=== PATIENT | female | born 1945 | race Caucasian/White ===

== ENCOUNTER → 2022-03-21 10:18 | Outpatient (BNVA) | payer MEDICARE, MEDICAID, SELFPAY | PROVIDERS: PCP Physician Assistant Medical; Visit Provider Hospitalist | DX: G47.34 Idiopathic sleep related nonobstructive alveolar hypoventilation (principal); G47.33 Obstructive sleep apnea (adult) (pediatric); J98.4 Other disorders of lung | CPT/HCPCS: 99202 ==

== ENCOUNTER → 2022-06-02 19:30 | Outpatient (REF) | payer MEDICARE, MEDICAID, SELFPAY | LOC: HO.SL 19:30 | PROVIDERS: PCP Physician Assistant Medical; Visit Provider Hospitalist | DX: G47.33 Obstructive sleep apnea (adult) (pediatric) (principal) | CPT/HCPCS: 95810 ==

== ENCOUNTER → 2022-06-06 15:13 | Outpatient (BNVA) | payer MEDICARE, MEDICAID, SELFPAY | PROVIDERS: PCP Physician Assistant Medical; Visit Provider Hospitalist | DX: G47.34 Idiopathic sleep related nonobstructive alveolar hypoventilation (principal); J98.4 Other disorders of lung | CPT/HCPCS: 99212 ==

== ENCOUNTER 2022-12-10 10:49 | Outpatient (AMB) | payer MEDICARE, MEDICAID, SELFPAY ==
[2022-12-10 11:12] VITALS: BP 118/60; PULSE 67; O2SAT 95; BMI 26.5
--- NOTE | 2022-12-10 11:12 | A.OFFVIS_ITS ---
Intake Vital Signs 12/10/22 11:12 Height 5 ft 7 in Weight 169 lb BMI 26.5 BP 118/60 Blood Pressure Location Rt brachial Position Sitting Pulse 67 Pulse Source Pulse Oximeter Pulse Oximetry (%) 95 Oxygen Delivery Method Room Air Intake Visit Reasons: Hypoxia Allergies No Known Allergies Allergy (Verified 12/10/22 11:15) HPI HPI Comments History of Present Illness Details The patient is a 77-year-old woman with a history of progressive shortness of breath he. She was evaluated by primary care doctor. The patient is critically anemic. She was admitted briefly to [facility] with symptomatic anemia. She did require 3 units of blood. The etiology of her anemia still not clear. Is currently being worked up. Although while she was hospitalized she was noted to be hypoxic. She required oxygen at nighttime. The patient does complaint of daytime drowsiness and headaches. Her Kyle score is elevated 03/23. The patient has not had a sleep study. Indeed the patient does have cardiovascular and cerebrovascular risk factors. Therefore she needs to have a in-lab study at this time. Will request 1. in addition to that we did a walking oximetry the patient does not qualify for oxygen with activity which is reassuring. The patient does describe coughing and sometimes she does have still shortness of breath even after the anemia was improved. On examination she does have a prolonged expiratory phase. On previous pulmonary function studies the patient did have evidence of small airways disease. Therefore, will start her on a combination inhaler to provide with further bronchodilation improvement of her symptoms. The patient also will undergo the sleep study and have a follow-up. 06/06/2022 the patient is here for pulmonary follow-up visit. Overall the patient has been feeling better. She has been using the Advair with good response. Her cough is better. She has not had to use her rescue inhaler. The patient still has been using the oxygen at nighttime. She does headaches and also daytime drowsiness. We did perform an in-lab sleep study since she is on oxygen. Her AHI was only 1.5 which is reassuring. And she actually did not require oxygen throughout the procedure. She only spent about 0.9 minutes below 88%. This is all reassuring she is very happy about that. During the sleep study as she did have significant amount of periodic limb movements. Although s he states that that was because she was uncomfortable in the laboratory. Although it could also be due to iron deficiency. She had been on iron for her anemia and apparently that was improved. Therefore will continue to monitor closely ferritin and iron levels accordingly via her primary care doctor. 12/10/2022 the patient is here for a pulm onary follow-up visit. Overall the patient is about the same. Still complaining of dyspnea on exertion even with minimal activity. She was placed on Advair. Does not know for sure how much is helping. Will provide with spacer for to better administer the medication and also for better distribution of medication to the small airways. During the visit we did go for brief walking oximetry. The patient does stop the couple times because of increased shortness of breath but only for a few seconds and then she went back walking. Her oxygenation heart rate were stable throughout the ambulation. The patient is scheduled to undergo a cardiac PET scan with her batch blender at [facility]. In addition to that we did talk about considering a cardiopulmonary exercise tolerance test. Still unclear the etiology of her dyspnea. Likely multifactorial. We did talk about the different aspects of ventilation cardiovascular system and also the metabolic system that have to work together in order to provide with deficient breathing. Her hemoglobin has been better. She is following up closely with the partner management consultant regarding her iron. The patient will undergo a cardiac PET and also will request a cardiopulmonary exercise tolerance test level 1 at [facility] to better address her ongoing symptoms. [facility] Medical History (Updated 12/10/22 @ 22:36 by Kyle Oswald MD) Dyspnea Nocturnal hypoxia JERRY (obstructive sleep apnea) Small airways disease Social History (Updated 03/21/22 @ 10:31 by JOSIAS Laws) Patient Tobacco Use Status: Former Tobacco user Tobacco use type: Cigarette Years Smoked: 3 Years Review of Systems Const Reports daytime sleepiness, Reports difficulty sleeping, Denies fever(s) and Reports headache(s) Eyes Denies change in vision ENT Denies change in voice and Reports headache(s) Card Denies chest pain and Reports dyspnea on exertion Resp Reports dyspnea on exertion and Denies wheezing GI Reports no additional complaints Musc Reports abnormal gait and Reports myalgias Skin/Breast Denies rash Neuro Reports abnormal gait and Reports headache(s) Aller/Immun Denies wheezing Physical Exam Vital Signs: Last Vital Signs Pulse 67 12/10/22 11:12 BP 118/60 09/12/23 11:12 Pulse Ox 95 12/10/22 11:12 Oxygen Delivery Method Room Air 12/10/22 11:12 BMI result Body Mass Index 26.5 Const General: comfortable HEENT Head: Yes atraumatic Eyes General: appearance normal, both eyes and all related structures Neck Neck: Yes supple Chest Chest palpation & inspection: normal inspection of the chest Resp Effort & Inspection: normal respiratory effort and able to speak in complete sentences Auscultation: no crackles, no wheezes and diminished lung sounds Cardio Rate: regular rate Rhythm: regular rhythm Heart sounds: S1 normal heart sound present and S2 normal heart sound present GI Auscultation: normal bowel sounds Skin General skin exam: no rashes or lesions noted Extrem General: Yes no clubbing, cyanosis or edema Assessment & Plan Assessment & Plan (1) Small airways disease: Comment: continue Advair HFA in the am ok to hold oxygen at night 2L/min. If clinically doing well, then will discontinue. If any concerns then we can repeat overnught oximetry F/U with final PSG report F/U 5-6 months Code(s): J98.4 - Other disorders of lung (2) Dyspnea: Comment: Likely multifactorial, currently affecting her ability to perform her activities of daily living Code(s): R06.00 - Dyspnea, unspecified Qualifiers: Dyspnea type: dyspnea on exertion Qualified Code(s): R06.09 - Other forms of dyspnea Plan continue Advair HFA, will add a spacer Awaiting cardiac PET Will request a CPET at [facility]. Likely her dyspnea is multifactorial including her age, deconditioning, small airways disease and currently awaiting her cardiac PE T to address a cardiac component. Orders: Orders CA cardiopulmonary stress test Today R06.00 - Dyspnea, unspecified Coding Level of Care Code Est Pt Level 4 (11905) Diagnoses Small airways disease J98.4 Dyspnea on exertion R06.09 Dyspnea type: dyspnea on exertion Time Spent (min) 19
== END 2022-12-10 11:44 | disposition home or self-care (01) ==
PROVIDERS: PCP Physician Assistant Medical; Visit Provider Hospitalist
DX: J98.4 Other disorders of lung (principal); R06.09 Other forms of dyspnea
CPT/HCPCS: 99214

== ENCOUNTER → 2022-12-10 10:49 | Outpatient (BNVA) | payer MEDICARE, MEDICAID, SELFPAY | PROVIDERS: PCP Physician Assistant Medical; Visit Provider Hospitalist | DX: J98.4 Other disorders of lung (principal); R06.09 Other forms of dyspnea | CPT/HCPCS: 99212 ==

== ENCOUNTER 2023-02-26 10:41 | Outpatient (AMB) | payer MEDICARE, MEDICAID, SELFPAY ==
--- NOTE | 2023-02-26 10:53 | MHC.OFFVIS ---
Intake Vital Signs 02/26/23 10:58 Height 5 ft 7 in Weight 167 lb BMI 26.2 BP 124/60 Blood Pressure Location Rt brachial Position Sitting Pulse 63 Pulse Source Pulse Oximeter Pulse Oximetry (%) 98 Oxygen Delivery Method Room Air Intake Visit Reasons: Hypoxia Director Of [employer] Required: No Allergies No Known Allergies Allergy (Verified 02/26/23 10:56) HPI HPI Comments History of Present Illness Details The patient is a 78-year-old woman with a history of progressive shortness of breath he. She was evaluated by primary care doctor. The patient is critically anemic. She was admitted briefly to [facility] with symptomatic anemia. She did require 3 units of blood. The etiology of her anemia still not clear. Is currently being worked up. Although while she was hospitalized she was noted to be hypoxic. She required oxygen at nighttime. The patient does complaint of daytime drowsiness and headaches. Her Elwin score is elevated 12/24. The patient has not had a sleep study. Indeed the patient does have cardiovascular and cerebrovascular risk factors. Therefore she needs to have a in-lab study at this time. Will request 1. in addition to that we did a walking oximetry the patient does not qualify for oxygen with activity which is reassuring. The patient does describe coughing and sometimes she does have still shortness of breath even after the anemia was improved. On examination she does have a prolonged expiratory phase. On previous pulmonary function studies the patient did have evidence of small airways disease. Therefore, will start her on a combination inhaler to provide with further bronchodilation improvement of her symptoms. The patient also will undergo the sleep study and have a follow-up. 06/06/2022 the patient is here for pulmonary follow-up visit. Overall the patient has been feeling better. She has been using the Advair with good response. Her cough is better. She has not had to use her rescue inhaler. The patient still has been using the oxygen at nighttime. She does headaches and also daytime drowsiness. We did perform an in-lab sleep study since she is on oxygen. Her AHI was only 1.5 which is reassuring. And she actually did not require oxygen throughout the procedure. She only spent about 0.9 minutes below 88%. This is all reassuring she is very happy about that. During the sleep study as she did have significant amount of periodic limb movements. Although she states that that was because she was uncomfortable in the laboratory. Although it could also be due to iron deficiency. She had been on iron for her anemia and apparently that was improved. Therefore will continue to monitor closely ferritin and iron levels accordingly via her primary care doctor. 12/10/2022 the patient is here for a pulmonary follow-up visit. Overall the patient is about the same. Still complaining of dyspnea on exertion even with minimal activity. She was placed on Advair. Does not know for sure how much is helping. Will provide with spacer for to better administer the medication and also for better distribution of medication to the small airways. During the visit we did go for brief walking oximetry. The patient does stop the couple times because of increased shortness of breath but only for a few seconds and then she went back walking. Her oxygenation heart rate were stable throughout the ambulation. The patient is scheduled to undergo a cardiac PET scan with her religious education teacher at [facility]. In addition to that we did talk about considering a cardiopulmonary exercise tolerance test. Still unclear the etiology of her dyspnea. Likely multifactorial. We did talk about the different aspects of ventilation cardiovascular system and also the metabolic system that have to work together in order to provide with deficient breathing. Her hemoglobin has been better. She is following up closely with the airplane rental clerk regarding her iron. The patient will undergo a cardiac PET and also will request a cardiopulmonary exercise tolerance test level 1 at [facility] to better address her ongoing symptoms. 02/26/2023 the patient is here for a pulmonary follow-up visit. Patient is overall feeling a little better. She still complains the dyspnea on exertion but doing overall better. She is tolerating the Advair. The patient did undergo a cardiopulmonary exercise tolerance test at [facility] which we personally reviewed. It was a good study of she did have decrease aerobic capacity as expected. She was also noted that the patient was hypertensive at the end of the study and also heart rate and oxygen pulse was decreased suggesting a cardiovascular component to her dyspnea. But on top of that the patient did have a decrease minute ventilation and decrease volumes resulting in a ventilatory limitation as well. Based on the findings the patient appeared to have both a cardiovascular any pulmonary limitation to her exercise capacity. She is responding well to the respiratory therapy. The patient does have a history of COVID at the beginning of this and he may indeed have a post COVID a component to her persistent dyspnea symptoms. Therefore, will go ahead and start her on pulmonary rehabilitation at [facility] as she prefers to go there based on previous experience. I do believe that with exercises for her lung capacity and endurance buildup that her respiratory capacity should improve in her exercise capacity should also improve. [facility] Medical History (Updated 02/26/23 @ 21:20 by Kyle Oswald MD) [id number] syndrome Dyspnea Nocturnal hypoxia JERRY (obstructive sleep apnea) Small airways disease Social History (Updated 03/21/22 @ 10:31 by JOSIAS Laws) Patient Tobacco Use Status: Former Tobacco user Tobacco use type: Cigarette Years Smoked: 3 Years Review of Systems Const Reports daytime sleepiness, Reports difficulty sleeping, Denies fever(s) and Reports headache(s) Eyes Denies change in vision ENT Denies change in voice and Reports headache(s) Card Denies chest pain and Reports dyspnea on exertion Resp Reports dyspnea on exertion and Denies wheezing GI Reports no additional complaints Musc Reports abnormal gait and Reports myalgias Skin/Breast Denies rash Neuro Reports abnormal gait and Reports headache(s) Aller/Immun Denies wheezing Physical Exam Vital Signs: Last Vital Signs Pulse 63 02/26/23 10:58 BP 124/60 02/26/23 10:58 Pulse Ox 98 02/26/23 10:58 Oxygen Delivery Method Room Air 02/26/23 10:58 BMI result Body Mass Index 26.2 Const General: comfortable HEENT Head: Yes atraumatic Eyes General: appearance normal, both eyes and all related structures Neck Neck: Yes supple Chest Chest palpation & inspection: normal inspection of the chest Resp Effort & Inspection: normal respiratory effort and able to speak in complete sentences Auscultation: no crackles, no wheezes and diminished lung sounds Cardio Rate: regular rate Rhythm: regular rhythm Heart sounds: S1 normal heart sound present and S2 normal heart sound present GI Auscultation: normal bowel sounds Skin General skin exam: no rashes or lesions noted Extrem General: Yes no clubbing, cyanosis or edema Assessment & Plan Assessment & Plan (1) Small airways disease: Comment: continue Advair HFA Code(s): J98.4 - Other disorders of lung (2) Dyspnea: Comment: multifactorial based on CPET Code(s): R06.00 - Dyspnea, unspecified Qualifiers: Dyspnea type: dyspnea on exertion Qualified Code(s): R06.09 - Other forms of dyspnea (3) 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
[2023-02-26 10:58] VITALS: BP 124/60; PULSE 63; O2SAT 98; BMI 26.2
== END 2023-02-26 11:26 | disposition home or self-care (01) ==
PROVIDERS: PCP Physician Assistant Medical; Visit Provider Hospitalist
DX: J98.4 Other disorders of lung (principal); R06.09 Other forms of dyspnea; U09.9 Post COVID-19 condition, unspecified
CPT/HCPCS: 99214

== ENCOUNTER → 2023-02-26 10:41 | Outpatient (BNVA) | payer MEDICARE, MEDICAID, SELFPAY | PROVIDERS: PCP Physician Assistant Medical; Visit Provider Hospitalist | DX: J98.4 Other disorders of lung (principal); R06.09 Other forms of dyspnea; U09.9 Post COVID-19 condition, unspecified | CPT/HCPCS: 99212 ==

== ENCOUNTER 2023-09-01 10:48 | Outpatient (AMB) | payer MEDICARE, SELFPAY ==
--- NOTE | 2023-09-01 10:53 | MHC.OFFVIS ---
Vital Signs 09/01/23 10:57 Height 5 ft 7 in Weight 164 lb BMI 25.7 Pulse 81 Pulse Source Pulse Oximeter Pulse Oximetry (%) 96 Oxygen Delivery Method Room Air Intake Visit Reasons: Hypoxia [place]k Required: No Allergies No Known Allergies Allergy (Verified 09/01/23 11:00) HPI Comments Details: The patient is a 78-year-old woman with a history of progressive shortness of breath he. She was evaluated by primary care doctor. The patient is critically anemic. She was admitted briefly to [facility] with symptomatic anemia. She did require 3 units of blood. The etiology of her anemia still not clear. Is currently being worked up. Although while she was hospitalized she was noted to be hypoxic. She required oxygen at nighttime. The patient does complaint of daytime drowsiness and headaches. Her Carey score is elevated 03/23. The patient has not had a sleep study. Indeed the patient does have cardiovascular and cerebrovascular risk factors. Therefore she needs to have a in-lab study at this time. Will request 1. in addition to that we did a walking oximetry the patient does not qualify for oxygen with activity which is reassuring. The patient does describe coughing and sometimes she does have still shortness of breath even after the anemia was improved. On examination she does have a prolonged expiratory phase. On previous pulmonary function studies the patient did have evidence of small airways disease. Therefore, will start her on a combination inhaler to provide with further bronchodilation improvement of her symptoms. The patient also will undergo the sleep study and have a follow-up. 06/06/2022 the patient is here for pulmonary follow-up visit. Overall the patient has been feeling better. She has been using the Advair with good response. Her cough is better. She has not had to use her rescue inhaler. The patient still has been using the oxygen at nighttime. She does headaches and also daytime drowsiness. We did perform an in-lab sleep study since she is on oxygen. Her AHI was only 1.5 which is reassuring. And she actually did not require oxygen throughout the procedure. She only spent about 0.9 minutes below 88%. This is all reassuring she is very happy about that. During the sleep study as she did have significant amount of periodic limb movements. Although she states that that was because she was uncomfortable in the laboratory. Although it could also be due to iron deficiency. She had been on iron for her anemia and apparently that was improved. Therefore will continue to monitor closely ferritin and iron levels accordingly via her primary care doctor. 12/10/2022 the patient is here for a pulmonary follow-up visit. Overall the patient is about the same. Still complaining of dyspnea on exertion even with minimal activity. She was placed on Advair. Does not know for sure how much is helping. Will provide with spacer for to better administer the medication and also for better distribution of medication to the small airways. During the visit we did go for brief walking oximetry. The patient does stop the couple times because of increased shortness of breath but only for a few seconds and then she went back walking. Her oxygenation heart rate were stable throughout the ambulation. The patient is scheduled to undergo a cardiac PET scan with her tray server at [facility]. In addition to that we did talk about considering a cardiopulmonary exercise tolerance test. Still unclear the etiology of her dyspnea. Likely multifactorial. We did talk about the different aspects of ventilation cardiovascular system and also the metabolic system that have to work together in order to provide with deficient breathing. Her hemoglobin has been better. She is following up closely with the straightening machine feeder regarding her iron. The patient will undergo a cardiac PET and also will request a cardiopulmonary exercise tolerance test level 1 at [facility] to better address her ongoing symptoms. 02/26/2023 the patient is here for a pulmonary follow-up visit. Patient is overall feeling a little better. She still complains the dyspnea on exertion but doing overall better. She is tolerating the Advair. The patient did undergo a cardiopulmonary exercise tolerance test at [facility] which we personally reviewed. It was a good study of she did have decrease aerobic capacity as expected. She was also noted that the patient was hypertensive at the end of the study and also heart rate and oxygen pulse was decreased suggesting a cardiovascular component to her dyspnea. But on top of that the patient did have a decrease minute ventilation and decrease volumes resulting in a ventilatory limitation as well. Based on the findings the patient appeared to have both a cardiovascular any pulmonary limitation to her exercise capacity. She is responding well to the respiratory therapy. The patient does have a history of COVID at the beginning of this and he may indeed have a post COVID a component to her persistent dyspnea symptoms. Therefore, will go ahead and start her on pulmonary rehabilitation at [facility] as she prefers to go there based on previous experience. I do believe that with exercises for her lung capacity and endurance buildup that her respiratory capacity should improve in her exercise capacity should also improve. 09/01/2023 the patient is here for a pulmonary follow-up visit. Overall she is doing well. She did complete pulmonary rehab and now participating in cardiac rehab. Unfortunately she had a fall and she had to stop the cardiac rehab 4. Of time. Denies any broken bones. The patient was evaluated at [facility] in therefore I do not have the results. On examination she does not have any wheezing she is doing well on the Advair. On examination the patient did have a small 2/6 systolic murmur likely . She was not aware of a murmur so I looked back and I saw that at [facility] when she underwent a cardiac catheterization was documented she had mild aortic stenosis. I did reassure her that this is in anything for her to wear well. She will follow-up with cardiology about it. Otherwise she is doing well she is going to continue on the current respiratory therapy and will follow-up in a year's time. If she develops any worsening symptoms prior to that she will call for an earlier assessment. [facility] Medical History (Updated 09/01/23 @ 21:44 by Kyle Oswald MD) Systolic murmur [id number] syndrome Dyspnea Nocturnal hypoxia JERRY (obstructive sleep apnea) Small airways disease Social History (Updated 03/21/22 @ 10:31 by JOSIAS Laws) Patient Tobacco Use Status: Former Tobacco user Tobacco use type: Cigarette Years Smoked: 3 Years Review of Systems Const Denies fever(s) Eyes Denies change in vision ENT Denies change in voice Card Denies chest pain and Reports dyspnea on exertion Resp Reports dyspnea on exertion and Denies wheezing GI Reports no additional complaints Musc Reports abnormal gait Skin/Breast Denies rash Neuro Reports abnormal gait Aller/Immun Denies wheezing Physical Exam Vital Signs: Last Vital Signs Pulse 81 09/01/23 10:57 Pulse Ox 96 09/01/23 10:57 Oxygen Delivery Method Room Air 09/01/23 10:57 BMI result Body Mass Index 25.7 Const General: comfortable HEENT Head: Yes atraumatic Eyes General: appearance normal, both eyes and all related structures Neck Neck: Yes supple Chest Chest palpation & inspection: normal inspection of the chest Resp Effort & Inspection: normal respiratory effort and able to speak in complete sentences Auscultation: clear to auscultation bilaterally, no crackles and no wheezes Cardio Rate: regular rate Rhythm: regular rhythm Heart sounds: S1 normal heart sound present and S2 normal heart sound present GI Auscultation: normal bowel sounds Skin General skin exam: no rashes or lesions noted Extrem General: Yes no clubbing, cyanosis or edema Assessment & Plan Assessment & Plan (1) Small airways disease: Comment: continue Advair HFA Code(s): J98.4 - Other disorders of lung Category: Medical (2) Dyspnea: Comment: multifactorial based on CPET Code(s): R06.00 - Dyspnea, unspecified Category: Medical Qualifiers: Dyspnea type: dyspnea on exertion Qualified Code(s): R06.09 - Other forms of dyspnea (3) [id number] syndrome: 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
[2023-09-01 10:57] VITALS: PULSE 81; O2SAT 96; BMI 25.7
== END 2023-09-01 11:16 | disposition home or self-care (01) ==
PROVIDERS: PCP Nurse Practitioner; Visit Provider Hospitalist
DX: J98.4 Other disorders of lung (principal); R06.09 Other forms of dyspnea; U09.9 Post COVID-19 condition, unspecified; R01.1 Cardiac murmur, unspecified
CPT/HCPCS: 99214

== ENCOUNTER → 2023-09-01 10:48 | Outpatient (BNVA) | payer MEDICARE, SELFPAY | PROVIDERS: PCP Physician Assistant Medical; Visit Provider Hospitalist | DX: J98.4 Other disorders of lung (principal); R06.09 Other forms of dyspnea; U09.9 Post COVID-19 condition, unspecified; R01.1 Cardiac murmur, unspecified | CPT/HCPCS: 99212 ==